=== PATIENT | female | born 2000 | race African-American/Black ===

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

== ENCOUNTER 2020-02-16 06:57 | Inpatient (IN) | payer BC, MEDICAID ==
[~2020-02-16] VITALS: Ht 175.3 cm; Wt 104.2 kg
[2020-02-16] VITALS (73 sets, daily range): BP systolic 88–143; BP diastolic 41–87
--- NOTE | 2020-02-16 07:04 | NUR ---
JESUS ALVAREZ presented to unit via abulatory from ED, accompanied by mother , with for INDUCTION of labor. JESUS ALVAREZ weighed, gowned, voided, and to bed. EFHM and TOCO applied, VS taken. JESUS ALVAREZ oriented to bed controls, call light, TV, heat, and A/C controls.
--- NOTE | 2020-02-16 07:36 | History & Physical ---
History and Physical Date Seen by Provider: Feb 16, 2020 Time Seen by Provider: 07:33 this patient is a 20-year-old 1 female patient of presents for labor induction.her has been uncomplicated. She denies rupture membranes or bleeding. Her GBS culture is not on the chart and we will determine its status shortly Allergies are to Ceftin which causes nausea Medications are vitamins and heartburn medicine and Zofran Medical social and surgical histories are per the antepartum record HEENT exam is normal Neck is supple no lymphadenopathy no thyromegaly Abdomen gravid soft nontender nondistended Extremities show no clubbing or cyanosis. There is no Homans sign. Pelvic exam is pending Assessment and plan term at 39+ weeks gestation admitted for labor induction. We anticipate a vaginal delivery. Results of GBS culture are pending if it is positive we will prophylax with ampicillin. 39 week gestation admitted for induction of labor electively Allergies and Home Medications Allergies Coded Allergies: cefuroxime axetil (Verified Allergy, Mild, 11/06/12) Home Medications Ondansetron 4 Mg Tab.rapdis, 4 MG PO Q8H PRN for NAUSEA/VOMITING, (Reported) Patient Home Medication List Home Medication List Reviewed: Yes LETI PAREDES MD Feb 16, 2020 07:36
[2020-02-16] MEDS ORDERED: D5 LR IV SOLUTION 1,000 ML IV ONE (07:50)
[2020-02-16] MEDS ORDERED: OXYTOCIN PRE-MIX DRIP 500 ML IV ONE (07:50)
[2020-02-16] MEDS ORDERED: FERR-84 PO (08:23)
[2020-02-16] MEDS ORDERED: PREN-37 PO (08:23)
[2020-02-16] MEDS ORDERED: D5 LR IV SOLUTION 1,000 ML IV SCH ×2 (08:35→21:39)
[2020-02-16] MEDS ORDERED: OXYTOCIN PRE-MIX DRIP 500 ML IV SCH ×2 (08:35→21:39)
[2020-02-16 08:54] LABS: BASOPHILS % (AUTO) 0 % (0-10); EOSINOPHILS # (AUTO) 0.1 10^3/uL (0.0-0.3); EOSINOPHILS % (AUTO) 1 % (0-10); HEMATOCRIT 30 % (35-52); HEMOGLOBIN 9.2 G/DL (11.5-16.0); LYMPHOCYTES # (AUTO) 1.8 X 10^3 (1.0-4.0); LYMPHOCYTES % (AUTO) 27 % (12-44); MEAN CORPUSCULAR HEMOGLOBIN 23 PG (25-34); MEAN CORPUSCULAR HGB CONC 31 G/DL (32-36); MEAN CORPUSCULAR VOLUME 75 FL (80-99); MEAN PLATELET VOLUME 11.2 FL (7.4-10.4); MONOCYTES % (AUTO) 14 % (0-12); NEUTROPHILS # (AUTO) 3.9 X 10^3 (1.8-7.8); NEUTROPHILS % (AUTO) 57 % (42-75); PLATELET COUNT 208 10^3/uL (130-400); RED CELL DISTRIBUTION WIDTH 26.5 % (10.0-14.5); WHITE BLOOD COUNT 6.8 10^3/uL (4.3-11.0)
[2020-02-16] MEDS ORDERED: BUTORPHANOL INJ 2 MG/ML (STADOL) VIAL ONE (16:22)
[2020-02-16] MEDS ORDERED: BUTORPHANOL INJ 2 MG/ML (STADOL) VIAL IV ONE (16:30)
[2020-02-16] MEDS ORDERED: fentaNYL 2 mcg/ml BUPIVA 0.125 100 ML ONE (18:43)
[2020-02-16] MEDS ORDERED: fentaNYL INJECTION 100 MCG/2 ML AMP ONE (18:44)
[2020-02-16] MEDS ORDERED: LACTATED RINGERS 1,000 ML IV ONE ×3 (19:16→20:25)
[2020-02-16] MEDS ORDERED: LIDOCAINE PF 2% 5 ML (XYLOCAINE) VIAL ONE ×3 (20:17→21:37)
[2020-02-16] MEDS ORDERED: BUPIVACAINE 0.25% 30 ML (SENSORCAINE) VIAL ONE (20:18)
[2020-02-16] MEDS ORDERED: fentaNYL INJECTION 100 MCG/2 ML AMP INJ ONE (20:30)
[2020-02-16] MEDS ORDERED: EPIDURAL (fentaNYL 2 MCG/ML BUPIVA 0.125%)100 ML BAG EPI PRN (20:30)
[2020-02-16] MEDS ORDERED: NALOXONE 0.4 MG/ML 1 ML (NARCAN) VIAL IV PRN (20:30)
[2020-02-16] MEDS ORDERED: ONDANSETRON 4 MG/2 ML (SDV) Z0FRAN IV PRN (20:30)
[2020-02-16] MEDS ORDERED: METOCLOPRAMIDE INJ 10 MG/2 ML (REGLAN) ONE (21:18)
[2020-02-16] MEDS ORDERED: CITRIC ACID/SOB CIT (BICITRA) 30 ML UDC ONE (21:19)
[2020-02-16] MEDS ORDERED: FAMOTIDINE 20MG/2ML IV (PEPCID) ONE (21:19)
[2020-02-16] MEDS ORDERED: LACTATED RINGERS 1,000 ML IV PRN (21:26)
[2020-02-16] MEDS ORDERED: METOCLOPRAMIDE INJ 10 MG/2 ML (REGLAN) IV ONE (21:30)
[2020-02-16] MEDS ORDERED: FAMOTIDINE 20MG/2ML IV (PEPCID) IV ONE (21:30)
[2020-02-16] MEDS ORDERED: CITRIC ACID/SOB CIT (BICITRA) 30 ML UDC PO ONE (21:30)
[2020-02-16] MEDS ORDERED: CLINDAMYCIN 900 MG/50 ML IVPB 50 ML IV ONE ×2 (21:35→21:45)
--- NOTE | 2020-02-16 21:37 | Progress Note ---
Standard Progress Note Progress Notes/Assess & Plan Date Seen by a Provider: Feb 16, 2020 Time Seen by a Provider: 21:34 Progress/Assessment & Plan patient is requesting a . She had been on Pitocin since approximately 8 AM. She did get an epidural however she complains of persistent discomfort in spite of the epidural. Her cervix is 2 half to 3 cm and has been at that point for over 4 hours. She does understand that there is some possibility of vaginal delivery with continuing the trial of labor however at this point she is specifically requesting . Medical discussion regarding surgical risks, complication, and recovery and follow-up. Patient is ready to proceed with delivery..I do agree with the patient at think it is unlikely that she will progress in labor considering the dismal progress she has made thus far with very adequate labor on the Pitocin. Surgical crews have been called and anesthesia have been called. will be performed shortly LETI PAREDES MD Feb 16, 2020 21:37
[2020-02-16] MEDS ORDERED: BUPIVACAINE 0.5% 30 ML (SENSORCAINE) VIAL ONE (21:44)
[2020-02-16] MEDS ORDERED: KETAMINE/NaCl 50 MG/5 ML SYRINGE (ED ONLY) ONE (21:45)
[2020-02-16] MEDS ORDERED: MEASLES,MUMPS,RUBELLA 1 EA INJ SC ONE (21:45)
[2020-02-16] MEDS ORDERED: TETANUS,DIPTH,PERTUSS P/F (BOOSTRIX) 0.5 ML VIAL IM ONE (21:45)
[2020-02-16] MEDS ORDERED: ONDANSETRON 4 MG/2 ML (SDV) Z0FRAN IVP PRN (21:45)
[2020-02-16] MEDS ORDERED: KETOROLAC 30 MG/ML VIAL ONE (22:25)
[2020-02-17] VITALS (8 sets, daily range): BP systolic 110–131; BP diastolic 61–81
--- NOTE | 2020-02-17 | NUR ---
Pt assisted into room from recovery. info papers discussed. Call light within reach. nb remains latched on and nursing well. pt requesting cold tray. [place] tray provided.
[2020-02-17] MEDS: oxyCODONE/APAP 10/325MG (PERCOCET 10) TABLET PO PRN ×5 (02:47→23:14)
[2020-02-17] MEDS: KETOROLAC 30 MG/ML VIAL IVP SCH ×3 (04:20→17:46)
--- NOTE | 2020-02-17 05:42 | NUR ---
pt assisted to bathroom. positive void. pericare completed. pt ambulated back to bed with standby assistance. Abdominal dsg removed. clips intact.
--- NOTE | 2020-02-17 08:10 | OPERATIVE REPORT ---
DATE OF SERVICE: 02/16/2020 PREOPERATIVE DIAGNOSIS: Term at 39+ weeks gestation in labor with failure to progress. POSTOPERATIVE DIAGNOSIS: Term at 39+ weeks gestation in labor with failure to progress cephalopelvic disproportion with persistent OP. OPERATIVE PROCEDURE: Primary low transverse delivery of a viable female with Apgars of 8 and 9 at 1 and 5 minutes respectively, weight 7 pounds 8 ounces. Cord blood pH of 7.29 and a time of 22:10. OPERATIVE DESCRIPTION: With the patient in the supine position under satisfactory epidural analgesia, the patient was prepped and draped in the usual fashion for abdominal surgery. Beasley catheter had been placed in the urinary bladder during labor that was left to dependent drainage. A Pfannenstiel incision was made through the skin with scalpel. The patient's abdomen was entered in the usual manner. Bladder retractor placed in position and clean scalpel was used to make a 4 cm hysterotomy incision transversely across the lower uterine segment that was extended bluntly. A small amount of amniotic fluid and some blood and clot were released on hysterotomy. Christopher forceps were applied to facilitate the delivery of the viable female infant with Apgars and stats as noted above. The infant was bulb suctioned on delivery of the head and again on completion of delivery. Umbilical cord was doubly clamped and cut and the passed to the pediatric nurse in attendance for delivery. Cord bloods were obtained. The placenta delivered promptly spontaneously Bee. It was normal with a 3-vessel cord. The uterus was exteriorized and interior wiped clean with a wet laparotomy sponge. Uterine incision was then closed with a running locked suture of 2-0 Vicryl. Hemostasis was satisfactory; however, the uterus was quite atonic and in order to prophylax against bleeding later, a modified B-Hill suture was placed using 2-0 chromic sutures in the modified fashion for a B-Hill. This compressed the uterus nicely. The uterus was now returned to abdominal cavity. All blood clot and debris were removed from the abdominal cavity. With sponge and needle counts correct and hemostasis assured, the anterior parietal peritoneum was closed with a running suture of 2-0 Vicryl. Rectus muscles were closed with that suture also. The rectus fascia was closed with 2-0 Vicryl, subcutaneous tissue was closed with 2-0 Vicryl and the skin was stapled. Sponge and needle counts were correct on completion of the procedure. Estimated blood loss was around 500 mL. The patient tolerated the procedure well and was transferred to the recovery room in stable condition. The remained with the patient's mother or [id number] with the patient's family in the operating room. Job ID: [id number] DocumentID: [id number] Dictated Date: 02/16/2020 22:39:53 Customer Quality Engineer Date: 02/17/2020 08:10:35 Dictated By: LETI PAREDES MD MTDD
--- NOTE | 2020-02-17 08:15 | NUR ---
A.M. ASSESSMENT COMPLETED. VSS. CARING FOR IN ROOM. GOOD INTERACTION NOTED.
[2020-02-17] MEDS: DOCUSATE SODIUM 100 MG (COLACE) CAP PO SCH ×2 (08:19→21:19)
--- NOTE | 2020-02-17 08:20 | NUR ---
PERCOCET 1 TAB P.O. FOR C/O ABD PAIN.
--- NOTE | 2020-02-17 08:24 | Progress Note ---
Standard Progress Note Progress Notes/Assess & Plan Date Seen by a Provider: Feb 17, 2020 Time Seen by a Provider: 08:23 Progress/Assessment & Plan patient is requesting a . She had been on Pitocin since approximately 8 AM. She did get an epidural however she complains of persistent discomfort in spite of the epidural. Her cervix is 2 half to 3 cm and has been at that point for over 4 hours. She does understand that there is some possibility of vaginal delivery with continuing the trial of labor however at this point she is specifically requesting . Medical discussion regarding surgical risks, complication, and recovery and follow-up. Patient is ready to proceed with delivery..I do agree with the patient at think it is unlikely that she will progress in labor considering the dismal progress she has made thus far with very adequate labor on the Pitocin. Surgical crews have been called and anesthesia have been called. will be performed shortly 2019 Patient is without complaint. She is ambulating, voiding, tolerating oral intake well and has good pain control. Vital Signs 02/17/20 04:16 Temp 37.3 Pulse 88 Resp 18 B/P (MAP) 116/77 (90) Pulse Ox 100 O2 Delivery Room Air vital signs are stable. Patient is afebrile. The abdomen is benign. The surgical incision is clean dry and intact. Extremities show no clubbing or cyanosis. There is no Homans sign. Assessment and plan postoperative day number 1 status post primary delivery doing well. Plan is for routine convalescence care Final Diagnosis 39 week primary delivery LETI PAREDES MD Feb 17, 2020 08:24
[2020-02-17] MEDS ORDERED: DOCUSATE SODIUM 100 MG (COLACE) CAP PO SCH (09:00)
--- NOTE | 2020-02-17 10:15 | NUR ---
DR. PAREDES NOTIFIED OF PT'S C/O NOT PASSING FLATUS AND HAVING NOT HAD A BM FOR 6 WEEKS. PT ADMITTED TO HAVING SMALL ROUND BALLS OF CONSTIPATED BM. ORDER RECEIVED FOR MIRALAX Q 1 HOURS UNTIL HAS A BM. PT INFORMED OF PLAN OF CARE.
[2020-02-17] MEDS ORDERED: polyethylene glycoL POWDER 17 GM (MIRALAX) PACK ONE (10:17)
--- NOTE | 2020-02-17 10:32 | NUR ---
MIRALAX GIVEN IN SWEET TEA PER PT REQUEST.
[2020-02-17] MEDS ORDERED: polyethylene glycoL POWDER 17 GM (MIRALAX) PACK PO ONE (11:00)
--- NOTE | 2020-02-17 12:04 | NUR ---
PERCOCET 1 P.O. FOR C/O ABD PAIN.
[2020-02-17] MEDS: polyethylene glycoL POWDER 17 GM (MIRALAX) PACK PO SCH ×7 (12:09→23:27)
[2020-02-17] MEDS ORDERED: CALCIUM CARBONATE 500 MG (TUMS) TAB.CHEW PO NR (13:00)
--- NOTE | 2020-02-17 13:14 | NUR ---
TUMS 1000 MG GIVEN FOR PT C/O ACID INDIGESTION.
[2020-02-17] MEDS ORDERED: DCS100C PO (13:40)
[2020-02-17] MEDS ORDERED: IBUP-1780 PO (13:40)
[2020-02-17] MEDS ORDERED: OXYC1TAB12 PO (13:40)
--- NOTE | 2020-02-17 13:42 | Discharge Inst-Surgical ---
Discharge Inst-Surgical Depart Medication/Instructions New, Converted or Re-Newed RX: RX on Chart Consults/Follow Up Patient Instructions: as directed Orders & Referrals Follow Up Appt: RTC 1 week for incision check with Dr. Tillman Call to make follow up appt. for patient in [address] Benedict or with Kim Ferrer TECHNICAL ASSISTANT. Wound Care: Remove nara, apply benzoin and steri strips. Activity Per routine post instructions. Please call in RX to patient pharmacy. Diet as tolerated Patient may shower or tub bathe as desired. Continue home meds Activity Activity as Tolerated: No Diet Discharge Diet: No Restrictions LETI TILLMAN MD Feb 17, 2020 13:42
--- NOTE | 2020-02-17 14:15 | NUR ---
PT ASLEEP WHEN ENTERED ROOM. PT HAD NOT TAKEN 3RD DOSE OF MIRALAX. ENCOURAGED TO FINISH THAT DOSE. MOTHER AT BEDSIDE RESTING WELL.
--- NOTE | 2020-02-17 14:45 | NUR ---
UP TO THE BATHROOM. STATES HAS AN URGE TO GO TO HAVE A BM.
--- NOTE | 2020-02-17 14:55 | NUR ---
NO BOWEL MOVEMENT PER PT.
--- NOTE | 2020-02-17 15:00 | NUR ---
PRUNE JUICE TAKEN TO PT. NURSERY RNS HAVE BEEN IN TO ASSIT PT NEEDED WITH .
--- NOTE | 2020-02-17 15:44 | NUR ---
MIRALAX GIVEN. DOSE #4 R/T PT NOT TAKING IT WELL NOW. PRUNE JUICE IS STILL AT BEDSIDE.
--- NOTE | 2020-02-17 16:54 | NUR ---
AMBULATING IN THE [place] WITH MOTHER PUSHING CRIB WITH . MOVES WELL. NO BM YET BUT STATES PASSING FLATUS NOW.
--- NOTE | 2020-02-17 17:45 | NUR ---
PERCOCET 1 TAB P.O. FOR C/O ABD. PAIN. STATES PASSING FLATUS MORE.
--- NOTE | 2020-02-17 18:44 | NUR ---
DR. PAREDES NOTIFIED OF PT PASSING FLATUS BUT NO BM AFTER 6 DOSES OF MIRILAX. ORDER TO CONTINUE UNTIL PT HAS A BM. NO NEW ORDERS.
--- NOTE | 2020-02-17 19:46 | Anesthesia-Regional Post-Op ---
Regional Patient Condition Mental Status: Alert, Oriented x3 Circulation: Same as Pre-Op Headache: Absent Sensation: Full Recovery Motor Block: Absent Post Op Complications Complications None Follow Up Care/Instructions Patient Instructions None needed. Anesthesia/Patient Condition Patient is doing well, no complaints, stable vital signs, no apparent adverse anesthesia problems. No complications reported per nursing. ALEXANDER ALFORD [employer] MEMBER Feb 17, 2020 19:46
--- NOTE | 2020-02-17 19:47 | NUR ---
Pt is up in the shower. Will put technical professional light when shes ready for assessment.
--- NOTE | 2020-02-17 20:10 | NUR ---
Pt finished with shower. Pt still reports no bm. Pt still drinking miralax from last shift. Pt states that she has had a bm in the past 6 weeks but they have been very small. Denies any bowel problems prior to . States prior to admission she was taking colace, miralax with no great results.
--- NOTE | 2020-02-17 22:00 | NUR ---
pt up ambulating in halls with mother at side.
[2020-02-17] MEDS: IBUPROFEN 800 MG (MOTRIN) TAB PO SCH (23:14)
--- NOTE | 2020-02-18 | NUR ---
Pt just finished with miralx. No bm as of yet. Next dose given in sweet tea per pt's request.
[2020-02-18 03:00] VITALS: BP 122/60
--- NOTE | 2020-02-18 03:03 | NUR ---
pt sleeping with eyes closed. pt aroused. vs taken. pt states that hasn't finished her last dose of miralax. Denies having a bm. Notified pt to notify rn when she finishes her miralax and will provider her with another dose.
[2020-02-18] MEDS: oxyCODONE/APAP 10/325MG (PERCOCET 10) TABLET PO PRN (04:31)
[2020-02-18] MEDS: IBUPROFEN 800 MG (MOTRIN) TAB PO SCH ×2 (05:37→12:32)
--- NOTE | 2020-02-18 07:45 | NUR ---
DR. PAREDES HERE TO SEE PT.
--- NOTE | 2020-02-18 07:54 | Progress Note ---
Standard Progress Note Progress Notes/Assess & Plan Date Seen by a Provider: Feb 18, 2020 Time Seen by a Provider: 07:53 Progress/Assessment & Plan patient is requesting a . She had been on Pitocin since approximately 8 AM. She did get an epidural however she complains of persistent discomfort in spite of the epidural. Her cervix is 2 half to 3 cm and has been at that point for over 4 hours. She does understand that there is some possibility of vaginal delivery with continuing the trial of labor however at this point she is specifically requesting . Medical discussion regarding surgical risks, complication, and recovery and follow-up. Patient is ready to proceed with delivery..I do agree with the patient at think it is unlikely that she will progress in labor considering the dismal progress she has made thus far with very adequate labor on the Pitocin. Surgical crews have been called and anesthesia have been called. will be performed shortly 2019 Patient is without complaint. She is ambulating, voiding, tolerating oral intake well and has good pain control. Vital Signs 02/17/20 04:16 Temp 37.3 Pulse 88 Resp 18 B/P (MAP) 116/77 (90) Pulse Ox 100 O2 Delivery Room Air vital signs are stable. Patient is afebrile. The abdomen is benign. The surgical incision is clean dry and intact. Extremities show no clubbing or cyanosis. There is no Homans sign. Assessment and plan postoperative day number 1 status post primary delivery doing well. Plan is for routine convalescence care February 18, 2020 Patient is without complaint except for constipation. She has good pain control. She denies nausea or vomiting. Patient is ambulating and voiding well. Vital Signs Date Time Temp Pulse Resp B/P (MAP) Pulse Ox O2 Delivery O2 Flow Rate FiO2 02/18/20 03:00 36.6 95 18 122/60 (80) 100 Room Air 02/17/20 20:26 37.0 91 18 124/79 (94) 100 Room Air 02/17/20 16:00 36.6 86 18 124/74 (91) 100 Room Air 02/17/20 12:00 36.9 90 18 118/68 (85) 98 Room Air 02/17/20 08:15 36.4 95 20 131/81 (98) 99 Room Air I & O 02/18/20 07:00 Intake Total 2280 ml Output Total 2300 ml Balance -20 ml vital signs are stable. Patient is afebrile. The abdomen is benign. The surgical incision is clean dry and intact. The fundus is firm and below the umbilicus. Extremities show no clubbing or cyanosis. There is no Homans sign. There is some pretibial pitting edema that is within normal limits. Assessment and plan post operative day number 2 status post primary delivery doing well. We will give a rectal suppository of Dulcolax per patient request. Plan is for discharge home with follow-up in clinic Final Diagnosis 39 week primary delivery LETI PAREDES MD Feb 18, 2020 07:54
[2020-02-18] MEDS ORDERED: BISACODYL 10 MG SUPP (DULCOLAX) PR PRN (08:00)
--- NOTE | 2020-02-18 08:20 | NUR ---
EATING BREAKFAST. MOM AT BEDSIDE. REQUEST THIS RN TO COME BACK LATER. PLAN OF CARE REVIEWED WITH PT REGARDING DULCOLAX SUPPOSITORY,
[2020-02-18 09:00] VITALS: BP 132/63
--- NOTE | 2020-02-18 09:00 | NUR ---
ASSESSMENT COMPLETED. VSS. PT HAS BEEN UP TO AMBULATE AFTER BREAKFAST. CARING FOR INFANT IN ROOM.
[2020-02-18] MEDS: DOCUSATE SODIUM 100 MG (COLACE) CAP PO SCH (09:27)
--- NOTE | 2020-02-18 09:38 | NUR ---
DULCOLAX SUPPOSITORY GIVEN MI PER DR. TOUSSAINT.
--- NOTE | 2020-02-18 10:30 | NUR ---
PT HAD LARGE BM.
[2020-02-18 12:15] VITALS: BP 122/72
--- NOTE | 2020-02-18 12:30 | NUR ---
PT REPORTS ANOTHER BM. STATES FEELING SOME BETTER BUT STILL HAS BLOATING AND GAS PAIN.
--- NOTE | 2020-02-18 14:00 | NUR ---
LINDA REMOVED AND STERI-STRIPS APPLIED. TINCTURE OF BENZOIN APPLIED TO SKIN PRIOR TO PLACING STERI-STRIPS. NO REDNESS OR DRAINAGE. EDGES WELL-APPROXIMATED.
--- NOTE | 2020-02-18 14:35 | NUR ---
DISCHARGE INSTRUCTIONS REVIEWED WITH COPY TO PT. RX GIVEN. STATES UNDERSTANDING OF ALL INSTRUCTIONS AND NEED TO F/U SCHEDULED AND NEEDED.
[2020-02-18 15:20] VITALS: BP 122/72
--- NOTE | 2020-02-18 15:20 | NUR ---
DISMISSED AMB FROM [facility] WITH INFANT TO FAMILY CAR IN STABLE CONDITION ACC BY MOTHER AND SOREN VIGIL RN.
== END 2020-02-18 15:20 | disposition home or self-care (01) | DRG 788 ==
LOC: LDRP 06:57
PROVIDERS: ADMIT Obstetrics & Gynecology; ATTEND Obstetrics & Gynecology
PROC: 10D00Z1 Extraction of Products of Conception, Low, Open Approach (ICD-10-PCS; principal; 2020-02-16 22:03)
DX: O62.0 Primary inadequate contractions (principal); Z3A.39 39 weeks gestation of pregnancy; Z37.0 Single live birth; O33.9 Maternal care for disproportion, unspecified
CPT/HCPCS: 36415; 85025; 86850; 86900; 86901

== ENCOUNTER 2020-07-24 13:00 | Outpatient (CLI) | payer BC ==
[~2020-07-24] VITALS: Ht 175.3 cm; Wt 95.5 kg
[~2020-07-24 13:00] MED LIST changes: +DCS100C PO; +FERR-84 PO; +IBUP-1780 PO; -MONT10TA26 PO; +MONT10TA97 PO; +OXYC1TAB12 PO; +PREN-37 PO
[2020-07-24] MEDS ORDERED: IRON DEXTRAN 25 MG/NS 6.25 ML TOTAL VOLUME IV ONE ×3 (13:15)
[2020-07-24] MEDS ORDERED: IRON DEXTRAN 1,000 MG/NS 250 ML IVPB IV ONE ×2 (13:15)
--- NOTE | 2020-07-24 13:52 | NUR ---
INFED 25 MG IV TEST DOSE JUST COMPLETED PER MINI INFUSER OVER 12 MIN. PT STATES SHE JUST NOW FELT ITCHY AT IV SITE AND SITE NOTED TO HAVE PINK AREA AROUND SL INSERTION SITE, APPROX 1 INCH IN DIAMETER. STATES SHE JUST NOTED THIS, DENIES OTHER COMPLAINTS.
--- NOTE | 2020-07-24 13:53 | NUR ---
C/O FACE FEELING ITCHY AND RIGHT SIDE OF UPPER LIP "FEELS TINGLY". CONTACTED Deepak HARDY, PHARMACY TO ACTIVATE HYPERSENSITIVITY MED PROTOCOL. TEMP 36.4, PULSE 76, RESP 18, BP 139/77, SAO2 100% ON RA.
--- NOTE | 2020-07-24 13:56 | NUR ---
HAVE NOTIFIED DR THORNE OF PT'S REACTION. WILL DC PLANNED INFUSION OF REMAINING 975 MG OF INFED.
--- NOTE | 2020-07-24 13:57 | NUR ---
BENADRYL 25 MG GIVEN IVP. STATES THROAT "FEELS WEIRD, LIKE I HAVE A BALL IN MY THROAT". SAO2 REMAINS 999-100% ON ROOM AIR. PINK AREA AT SL INSERTION SITE INCREASED SLIGHTLY TO APPROX 1.5 INCHES DIAMETER.
--- NOTE | 2020-07-24 13:58 | NUR ---
SOLU CORTEF 100 MG GIVEN IVP.
[2020-07-24] MEDS ORDERED: RT-ALBUTEROL SULF 2.5 MG/3 ML PRE-MIX VIAL IH PRN (14:00)
[2020-07-24] MEDS ORDERED: HYDROCORTISONE 100 MG/2 ML (Solu-CORTEF) VIAL IV PRN (14:00)
[2020-07-24] MEDS ORDERED: diphenhydrAMINE 50 MG/ML INJ (BENADRYL) IV PRN (14:00)
[2020-07-24] MEDS ORDERED: EPINEPHrine INJECTION 1 MG/ML AMP IM PRN (14:00)
--- NOTE | 2020-07-24 14:10 | NUR ---
STATES SHE NO LONGER FEELS THROAT FULLNESS, NOR LIP TINGLING OR FACIAL ITCHING. STATES ITCHING AT SL SITE IS SUBSIDING.
--- NOTE | 2020-07-24 14:20 | NUR ---
DENIES COMPLAINTS OF ITCHING, SWELLING OR TINGLING. SAO2 REMAINS 99-100% ON ROOM AIR. PINK AREA AT SL SITE NOW A FAINT PINK.
--- NOTE | 2020-07-24 14:45 | NUR ---
DENIES COMPLAINTS. SL SITE WITHOUT SWELLING, ITCHING OR REDNESS. HAS BEEN UP TO BR, GAIT STEADY. ALERT. TEMP 36.2, PULSE 72. RESP 18, B/P 120/86, SAO2 100% ON ROOM AIR.
[2020-07-24 15:00] VITALS: BP 124/67
--- NOTE | 2020-07-24 15:00 | NUR ---
NO CHANGE IN ASSESSMENTS. RADHA LEBRON'Corin, SITE CLEAR. PT STATES SHE HAS A FOLLOW UP APPOINTMENT WITH DR THORNE IN ONE WEEK. READY FOR DISMISSAL.
[2020-07-24] MEDS ORDERED: BIRTH CONTROL PILL (15:22)
== END 2020-07-24 15:00 | disposition home or self-care (01) ==
LOC: SDC 13:00 → EDSTATUS 13:01 → SDC 15:00
DX: D50.0 Iron deficiency anemia secondary to blood loss (chronic) (principal)
CPT/HCPCS: 96374; 96375

== ENCOUNTER → 2021-04-24 | Outpatient (REF) ==
[~2021-04-24] MED LIST changes: +BIRTH CONTROL PILL; -DCS100C PO; +DOCU-239 PO; +MONT10TA32 PO; -MONT10TA97 PO; -OMEP40CA27 PO; +OMEP40CA6 PO; +SERT-413 PO; -SERT50TA9 PO
--- NOTE | 2021-04-24 16:49 | Diagnostic Imaging Report ---
EXAMINATION: Right shoulder MRI without contrast, 04/24/2021. TECHNIQUE: Multiplanar, multisequence [id number] MRI of the right upper extremity was accomplished. INDICATION: Injury to the shoulder secondary to heavy lifting. FINDINGS: The supraspinatus and infraspinatus tendons appear intact. The subscapularis tendon is intact. The long head of the biceps tendon is intact and lies within the bicipital groove. The biceps tendon anchor is unremarkable. The labrum is grossly unremarkable on this noncontrast examination. Muscle volume is preserved. Visualized axilla is unremarkable. IMPRESSION: 1. Unremarkable MRI of the shoulder. Dictated by: Dictated on workstation # [id number]
== END ==
LOC: OCC 11:57
PROVIDERS: ATTEND Nurse Practitioner Family
DX: S49.91XA Unspecified injury of right shoulder and upper arm, initial encounter (principal); X58.XXXA Exposure to other specified factors, initial encounter
CPT/HCPCS: 73221

== ENCOUNTER → 2021-07-21 | Outpatient (RCR) | payer BC, MEDICAID ==
[~2021-07-21] MED LIST changes: +MONT-40 PO; -MONT10TA32 PO
== END | disposition home or self-care (01) ==
PROVIDERS: ATTEND Orthopaedic Surgery
DX: S43.432D Superior glenoid labrum lesion of left shoulder, subsequent encounter (principal); X58.XXXD Exposure to other specified factors, subsequent encounter

== ENCOUNTER → 2021-08-18 | Outpatient (RCR) | payer BC, MEDICAID | END | disposition home or self-care (01) | PROVIDERS: ATTEND Orthopaedic Surgery | DX: S43.432D Superior glenoid labrum lesion of left shoulder, subsequent encounter (principal); X58.XXXD Exposure to other specified factors, subsequent encounter ==

== ENCOUNTER → 2022-10-23 | Outpatient (CLI) | payer BC, MEDICAID ==
--- NOTE | 2022-10-23 12:48 | Diagnostic Imaging Report ---
PROCEDURE: Pelvic comp/transvaginal sonogram. TECHNIQUE: Complete transabdominal and transvaginal pelvic ultrasound was performed. In addition, limited pelvic Doppler was performed. INDICATION: Right-sided pelvic pain. The uterus is anteverted measuring 8.5 x 3.7 x 4.7 cm. Endometrium is 7 mm in thickness. No myometrial mass is identified. Right ovary measures 4.1 x 2.9 x 4.0 cm and the left ovary measures 4.4 x 2.8 x 4.1 cm. Right ovary does contain a 2.8 x 2.7 x 2.1 cm cyst. Left ovary contains a 4.0 x 2.4 x 3.5 cm cyst. There is blood flow to both ovaries. No free fluid is identified. IMPRESSION: Bilateral ovarian cysts, the largest on the left. No other significant abnormality is detected. Dictated by: Dictated on workstation # [id number]
== END ==
LOC: RAD 11:48
PROVIDERS: ATTEND Nurse Practitioner Family
DX: N83.201 Unspecified ovarian cyst, right side (principal); N83.202 Unspecified ovarian cyst, left side
CPT/HCPCS: 76830; 76856